=== PATIENT | male | born 1950 | race Caucasian/White ===

== ENCOUNTER 2019-05-08 09:07 | Inpatient (IN) ==
[2019-05-08] MEDS ORDERED: LEVAQUIN 750 MG/D5W 750 MG/150 ML IVPB IV ONE (09:33)
[2019-05-08] MEDS ORDERED: DUONEB (A & A) INH ONE (09:33)
[2019-05-08] MEDS ORDERED: LEVAQUIN 750 MG/D5W 750 MG/150 ML IVPB ONE (09:42)
[2019-05-08 09:52] LABS: ALLEN TEST YES; BE 2.6 mmoll (-3.0-3.0); BLOOD TYPE ARTERIAL; HCO3-(ACT) 26.9 mmoll (20.0-26.0); METHB 1.2 % (0.0-1.5); O2(CT) 27.1 mL/dL (15.0-23.0); O2HB 96.5 % (95.0-99.0); PCO2(98.6) 37 mmHg (35-45); PO2(98.6) 118 mmHg (60-100); SAMPLE BLOOD; SAO2 99.6 % (95.0-100.0); THB 19.9 g/dL (11.5-17.4); pH(98.6) 7.46 (7.35-7.45)
[2019-05-08 09:53] LABS: MODALITY NRB
--- NOTE | 2019-05-08 10:03 | Diag Imaging Result Doc PS360 ---
EXAM: CHEST-PORTABLE INDICATION: DRY COUGH TECHNIQUE: One view COMPARISON: 05/09/2015 FINDINGS: There is ill-defined patchy infiltrate at the medial left lung base projecting over the heart border suggesting pneumonia. Atypical viral pneumonia cannot be excluded. There is no discrete pleural fluid collection or pneumothorax. The cardiomediastinal silhouette and central vasculature are grossly unremarkable. IMPRESSION: Ill-defined patchy infiltrate at the medial left lung base suspicious for developing pneumonia. Electronically signed by Devang Barreto 05/08/2019 10:01 AM
--- NOTE | 2019-05-08 10:18 | PROVIDER DOCUMENTATION ---
HPI-Respiratory General - General Chief Complaint: Fever Stated Complaint: cough Time Seen by Provider: 05/08/19 09:07 Source: family, EMS Allergies/Adverse Reactions: Patient Allergies Allergy/AdvReac Type Severity Reaction Status Date / Time No Known Allergies Allergy Verified 05/08/19 10:30 Home Medications: Home Medication List Medication Instructions Recorded Confirmed Last Taken Type NK [No Home Medications] 05/08/19 05/08/19 Unknown History - History of Present Illness-Resp Nature of Presenting Problem: [id number] presents to the ER with c/o sudden onset of SOB, fever, and dry cough. Patient is non-verbal with MR and down syndrome. Brother reports that he lives with him in the home, but has caregivers that come in and out of the home twice per day. On arrival to the home EMS reports that patient's O2 sats were 80% on RA. Patient on arrival was on a non-rebreather at 86%. Dr Fitch and I spoke to the Brother. It was determined at that point that the patient was not to be intubated and would be considered a DNR1, if the time came. Patient is in moderated respiratory distress at this point. Onset/Duration: reports: abrupt, this morning Timing: reports: getting worse Cough Quality/Degree: reports: dry cough Associated Symptoms: reports: cough (dry), fever/chills, short of breath Similar Symptoms Previously?: No Recently seen or treated by another doctor?: No Review of Systems - Adult - REVIEW OF SYSTEMS - ADULT ROS:: limited per condition Constitutional: reports: see HPI, fever Eyes: reports: no symptoms reported Ears, Nose, Mouth & Throat: reports: no symptoms reported Cardiovascular: reports: no symptoms reported Respiratory: reports: see HPI, cough, shortness of breath Gastrointestinal: reports: no symptoms reported Genitourinary: reports: no symptoms reported Musculoskeletal: reports: no symptoms reported Integumentary: reports: no symptoms reported Neurological: reports: no symptoms reported Psychiatric: reports: no symptoms reported Endocrine: reports: no symptoms reported Hematologic/Lymphatic: reports: no symptoms reported Allergic/Immunologic: reports: no symptoms reported All Other Systems: Reviewed and Negative Past History - Adult - PAST MEDICAL HISTORY-ADULT Review of Records: reports: Old Records Reviewed, Nursing Assessment Review, Medications Reviewed, Social history reviewed & non-contributory. Major Childhood Illnesses: reports: denies history Cardiovascular: reports: denies history Respiratory: reports: denies history Gastrointestinal: reports: denies history Obstetrical/Gynecological: reports: denies history Genitourinary: reports: denies history Musculoskeletal: reports: denies history Neurological: reports: dementia, other (down syndrome) Endocrine/Immune: reports: denies history Other Conditions: reports: denies history - IMMUNIZATION STATUS Childhood Immunizations: See Nurse Assessment Flu Vaccine: See Nurse Assessment - FAMILY HISTORY Family History: reviewed, not pertinent - SOCIAL HISTORY Living Situation: family Physical Exam-General - PHYSICAL EXAM-ADULT Initial Vital Signs Reviewed: Yes - CONSTITUTIONAL General Appearance: moderate distress, thin - EYES Eyes: PERRL/EOMI, pink conjunctivae - HEAD, EARS, NOSE, MOUTH & THROAT HENMT: negative: moist mucous membranes (dry) - NECK Neck: full range of motion. negative: lymphadenopathy - RESPIRATORY Respiratory: decreased breath sounds (left), rhonchi (bilateral) - CARDIOVASCULAR Cardiovascular: regular rate, rhythm, no edema - GASTROINTESTINAL (ABDOMEN) Abdominal Exam: soft - MUSCULOSKELETAL Extremity: negative: normal gait (bed bound) Peripheral Pulses: radial (R): 2+, radial (L): 2+ - SKIN Integumentary: negative: normal color (pale), normal turgor (dry) - NEUROLOGIC Neurologic: other (non-verbal) - PSYCHIATRIC Psych/Mental Status: negative: oriented x 3 (will turn head to name only) Progress - PLAN OF CARE/RESULTS Progress/Plan/Lab Results: Orders Category Date Time Status Admit - [facility] Routine AdmDCTranf 05/08/19 16:11 Active Code [Resuscitation Status] Routine Care 05/08/19 10:28 Completed Isolation [Isolation Precautions Setup] NOW Care 05/08/19 09:26 Active Nursing- MD Consult Request ROUTINE Care 05/08/19 12:55 Active Resuscitation Status Routine Care 05/08/19 12:46 Ordered Saline Loc NOW Care 05/08/19 09:33 Completed Vital Signs Order ROUTINE Care 05/08/19 16:11 Active MD [Physician/Provider Consults] Routine Cons 05/08/19 12:55 Ordered NPO Diet 05/08/19 16:11 Completed CHEST-PORTABLE [RAD] Stat Exams 05/08/19 09:25 Completed ABG [RESP] Routine Lab 05/08/19 09:40 Completed BLOOD CULTURE [BLDCUL] Stat Lab 05/08/19 09:43 Results CBC WITH DIFF [HEME] Stat Lab 05/08/19 09:43 Completed COMPREHENSIVE METABOLIC PANEL [CHEM] Stat Lab 05/08/19 09:43 Completed GRAM STAIN [BLDCUL] Stat Lab 05/08/19 09:43 Completed LACTATE, PLASMA [CHEM] Lab 05/08/19 18:20 Completed LACTATE, PLASMA [CHEM] Lab 05/08/19 21:25 Completed LACTATE, PLASMA [CHEM] Stat Lab 05/08/19 09:43 Completed PRO B-NATRIURETIC PEPTIDE Stat Lab 05/08/19 09:43 Completed 0.9% Sodium Chloride Inj [Ns] 1,000 ml Med 05/08/19 10:56 Discontinued IV 999 mls/hr Albuterol 2.5MG/Ipratrop 0.5MG [Duoneb (A & A)] Med 05/08/19 09:33 Discontinued 3 ml INH NOW ONE Levofloxacin 750 mg/D5w [Levaquin 750 mg/D5w] Med 05/08/19 09:42 Discontinued 750 mg in 150 ml .ROUTE As directed Levofloxacin 750 mg/D5w [Levaquin 750 mg/D5w] Med 05/08/19 09:33 Discontinued 750 mg in 150 ml IV NOW Oxygen Device Routine Oth 05/08/19 16:11 Completed Pulse Oximetry Stat Oth 05/08/19 09:33 Completed Transfer/Admit Order [TRANSFER] Routine Transfer 05/08/19 12:45 Completed Result Diagrams: 05/11/19 08:02 05/12/19 05:57 - EKG 1 Time of EKG reading by physician:: 10:16 EKG Read and Signed by:: Guy Fitch EKG Interpretation (*Must complete 3 of following elements*): Normal Rate: 111 Rhythm: [facility] [place]: normal QRS: normal ND Interval: normal ST Wave: normal - XRAY 1 XRAY Study: Chest Impression: Abnormal, See EMR Report (FINDINGS: There is ill-defined patchy infiltrate at the medial left lung base projecting over the heart border suggesting pneumonia. Atypical viral pneumonia cannot be excluded. There is no d iscrete pleural fluid collection or pneumothorax. The cardiomediastinal silhouette and central vasculature are grossly unremarkable. IMPRESSION: Ill- defined patchy infiltrate at the medial left lung base suspicious for developing pneumonia.) Departure - Departure Date of Disposition Decision: 05/08/19 Time of Disposition Decision: 16:11 DIAGNOSIS: Pneumonia, Respiratory distress Disposition: ADMITTED INPATIENT 09 Certified Medical Emergency: Emergent Condition: Critical - Critical Care Note This patient required my direct & personal management of CC.: No Attestation - Physician/ HAFSA Attestation Patient care was provided by Advanced Practice Provider:: Yes Advanced Practice Provider:: Alejo Rudd Advanced Practice Provider documentation review:: The Mid-level provider documentation, treatment plan and medical decision making was reviewed by the physician who agrees with all treatment and medical decision making by the MLP. The physician spent face to face time with patient:: No Advanced Practice Provider documentation review:: Supervising physician onsite and consulted in the evaluation and care of this patient. The physician did not have a face to face encounter with the patient.
[2019-05-08 10:34] LABS: BASO# 0.08 X1000 (0.0-0.2); BASO% 0.7 % (0.0-0.8); HEMATOCRIT 48.9 % (42.0-52.0); IMM GRAN# 0.04 X1000 (0.0-0.04); IMM GRAN% 0.4 % (0.0-0.5); LYMPH# 1.89 X1000 (1.2-3.4); LYMPH% 16.9 % (20.5-51.1); MCHC 30.7 g/dL (33-37); MONO# 0.67 X1000 (0.11-0.59); MPV 9.8 FL (7.4-10.4); PLT 316 X1000 (130-400); RBC 4.84 XMIL (4.7-6.1); RDW 17.1 % (11.5-14.5); WBC 11.18 X1000 (4.8-10.8)
[2019-05-08 10:47] LABS: AGAP 10; ALB/GLOB RATIO 0.6; ALKALINE PHOSPHATASE 58 U/L (32-122); BUN 14 mg/dL (8-22); CALCIUM 8.7 mg/dL (8.8-10.2); CHLORIDE 108 mmol/L (98-107); COSMO 295; CREATININE 1.1 mg/dL (0.7-1.2); ESTIMATED GFR > 60; GLUCOSE 98 mg/dL (70-104); GOT 20 U/L (10-34); GPT 14 U/L (10-44); POTASSIUM 4.1 mmol/L (3.5-5.1); SODIUM 148 mmol/L (136-145); TCO2 30 mmol/L (25-35); TOTAL BILIRUBIN 0.82 mg/dL (0.20-1.00); TOTAL PROTEIN 8.2 g/dL (6.3-8.3)
[2019-05-08] MEDS ORDERED: NS 1,000 ML IV ONE (10:56)
[2019-05-08] MEDS ORDERED: TYLENOL PR PRN (17:04)
[2019-05-08] MEDS: NS 1,000 ML IV SCH (17:29)
--- NOTE | 2019-05-08 18:47 | HISTORY AND PHYSICAL ---
Admitted by Dr. Delta Bennett to Dr. Crespo. CHIEF COMPLAINT: Fever, shortness of breath with dry cough. PRESENT ILLNESS: The patient had sudden onset of shortness of breath, fever, dry cough. He is nonverbal with MR and Down syndrome. He lives with his brother at home but has caregivers and also coming in and out of the home. On arrival to his home, EMS checked his O2 saturation and they were at 80 on room air. He was placed on a nonrebreather which brought it up to 86%. He was then brought to the emergency room. Emergency room doctor, Dr. Fitch, spoke with the brother and brother said he did not want him to be intubated and to consider him a DNR 1 and he has been made so. White count was 11,180, hemoglobin 15, hematocrit 48.9. Blood gas showed a pH of 7.46, pCO2 37, PO2 118 on 100% FiO2. Sodium 148, potassium 4.1, chloride 108, BUN 14, creatinine 1.1. ProBNP was 1541. The patient at this point does not show any signs of congestive heart failure. I do not have any past history noted that he has had heart failure. Because he has had a dry cough and a fever he has been tested for COVID-19, results are not back yet. Chest x-ray showed slight left lower lobe infiltrate, possible early pneumonia or viral pneumonitis. Could not get much in the way of past history on this patient at this time. After I talk with the brother there may be more information. Could not get anything on social history other than he lives with his brother. REVIEW OF SYSTEMS: Unobtainable at this time. PHYSICAL EXAMINATION: Initial temperature was 100 degrees Fahrenheit, went down to 99.6 and is back up to 100.5. Blood pressure has been down around 95, has been as high as 119, pulse 107, respirations 21. HEENT: He is normocephalic except for Down syndrome facies. NECK: Supple. I feel no lymphadenopathy. LUNGS: Sound fairly clear to auscultation. HEART: Regular rate and rhythm to sinus tachycardia without murmurs, gallops, or friction rubs. ABDOMEN: Soft, active bowel sounds. No organomegaly or does not seem to be tender. Patient does not respond. RECTAL: Deferred. GENITOURINARY: External genitalia exam deferred. INTEGUMENT: Does show decubitus ulcer to the sacrum. We will get wound care to look at this. NEUROLOGICAL: Patient is not very responsive at this time. ASSESSMENT AND PROVISIONAL DIAGNOSIS: 1. Probable left lower lobe pneumonia. Could be viral or bacterial. 2. Hypotension, rule out sepsis. 3. Intellectual deficit with Down syndrome. PLAN: Will support with IV antibiotics and IV fluids. The patient is a DNR 1. Have consulted pulmonology. cc: Delta Bennett Jr, MD
[2019-05-08] MEDS ORDERED: CALMOSEPTINE OINTMENT TOP PRN (18:58)
--- NOTE | 2019-05-08 19:58 | PULMONOLOGY CONSULTATION ---
DATE OF CONSULTATION: 05/08/2019 REQUESTING PHYSICIAN: Dr. Delta Bennett. REASON FOR CONSULT: Pneumonia, shortness of breath. HISTORY OF PRESENT ILLNESS: This is a 68-year-old gentleman with a history of mental retardation and Down syndrome. He is nonverbal. He presented to the emergency room via EMS after being called by the patient's brother, with whom he lives, reporting a nonproductive cough, a temperature of 100.4 degrees and O2 saturation of 80% on room air on EMS arrival. The chart states that he was placed on a nonrebreather and saturations increased to 95%. At the time of my exam the patient is alone. The patient is nonverbal. According to the chart, nurses spoke to the brother who states that the patient lived with his mother up until 2006, when she . At that time he came to live with him. He states that workers from [employer] come to his house twice a day. In the morning they get the patient dressed and sit him up in a chair. In the afternoon they come back to get him, change him and put him back to bed. He does state that he has a pressure sore to his bottom that he would like us to check. The patient does have to be fed. PAST MEDICAL HISTORY: Mental retardation, Down syndrome. PAST SURGICAL HISTORY: Unknown. SOCIAL HISTORY: He lives with his brother. No alcohol, tobacco or illicit drug use. ALLERGIES: None documented. HOME MEDICATIONS: None documented. REVIEW OF SYSTEMS: Unable to obtain. PHYSICAL EXAMINATION: This is a 68-year-old gentleman who is lying on the bed in no distress. Vital signs: Blood pressure is 99/68 with a heart rate of 100, respirations are 22, temperature is 100.5 degrees oral, with O2 saturations 97% to 100% on nonrebreather mask.Eyes: Pupils are equal, round and react to light. Sclerae are anicteric. HEENT: Head is normocephalic, atraumatic. Mucous membranes are dry. Neck is supple, with trachea midline. Pulmonary: He has decreased breath sounds throughout with rhonchi that are noted scattered through both lungs. Chest rises and falls symmetric with respiration. Cardiovascular: Regular rate and rhythm. S1 and S2 are appreciated. No murmur. He has no lower extremity edema. Peripheral pulses are palpable x4 extremities. Gastrointestinal: Abdomen is soft, nondistended, with bowel sounds in all 4 quadrants. Skin is pale, warm and dry. Extremities: Contractures are noted, bilateral lower extremities. Neurologic: The patient moves extremities at random. He does withdraw to pain. He will turn his head to his name being called, although he does not follow commands. LABORATORY DATA: WBC is 11.1 with hemoglobin 15, hematocrit 48.9 and platelets 316,000. Sodium 148, potassium 4.1, BUN 14, creatinine 1.1 with a glucose of 98. ProBNP is 1541. ABG pH is 7.46 with pCO2 of 37, pO2 of 118, bicarbonate of 26.9. This was on a nonrebreather. DIAGNOSTIC DATA: Chest x-ray revealed left lower lobe pneumonia. ASSESSMENT AND PLAN: 1. Left lower lobe pneumonia. Continue current antibiotic regimen 2. Borderline hypotension. Pressures are running 93 to 119 systolic. Membranes are dry. He was given 1 L bolus in the emergency room. continue rehydrating per Dr. Bennett. 3. Intellectual deficit with Down syndrome. 4. Down syndrome. 5. Mental retardation. 6. Gastrointestinal prophylaxis. Add Protonix. 7. Labs and chest x-ray in the morning per Dr. Bennett. Thank you for allowing us to participate in this patient's care. Dictated by MARLINE Givens for Asher Rios MD cc: MARLINE Givens MD Roger H. Moss Jr, MD MTDD
--- NOTE | 2019-05-08 20:32 | EKG Report ---
Test Performed on : 05/08/2019 10:16:11 AM Test Reason : sob Blood Pressure : / mmHG Vent. Rate : 111 BPM Atrial Rate : 111 BPM P-R Int : 116 ms QRS Dur : 084 ms QT Int : 350 ms P-R-T Axes : 076 -19 038 degrees QTc Int : 476 ms Sinus tachycardia. Otherwise normal ECG No previous ECGs available Confirmed by Rommel De La Cruz MD ([id number]) on 05/09/2019 6:00:08 PM
[2019-05-08] MEDS: SODIUM CHLORIDE 0.9% INJ SCH (21:13)
[2019-05-08] MEDS: PROTONIX IV SCH (21:13)
[2019-05-08] MEDS: TAZIDIME 2 GM/NS 2 GM/100 ML IVPB IV SCH (21:29)
[2019-05-08 21:50] LABS: INR 1.61; PROTIME 19.5 Seconds (11.0-16.0)
[2019-05-08 21:51] LABS: PTT 37.9 Seconds (22.3-41.8)
[2019-05-08 23:17] LABS: CK INDEX 0.7 (0.0-2.5); CK-MB 1.97 ng/mL (0.0-5.0)
[2019-05-09] MEDS: NS 1,000 ML IV SCH ×3 (00:25→13:03)
[2019-05-09 01:09] LABS: URINE SOURCE CATH
[2019-05-09 01:18] LABS: BILIRUBIN URINE NEGATIVE (NEGATIVE); BLOOD URINE NEGATIVE (NEGATIVE); COLOR YELLOW; GLUCOSE URINE NEGATIVE (NEGATIVE); KETONE URINE 10 mg/dL (NEGATIVE); LEUKOCYTES URINE SMALL (NEGATIVE); NITRITE URINE POSITIVE (NEGATIVE); PH URINE 6.5; PROTEIN URINE 30 mg/dL (NEGATIVE); TURBIDITY URINE CLEAR (CLEAR); UROBILINOGEN URINE NORMAL (NORMAL)
[2019-05-09 01:19] LABS: UR EPITHELIAL CELLS <10 /HPF (<10); URINE BACTERIA NEGATIVE /HPF; URINE RBC <10 /HPF (<10); URINE WBC 20-40 /HPF (<10)
[2019-05-09] MEDS: TAZIDIME 2 GM/NS 2 GM/100 ML IVPB IV SCH ×3 (05:09→21:19)
[2019-05-09 05:56] LABS: BASO# 0.08 X1000 (0.0-0.2); BASO% 0.8 % (0.0-0.8); EOS# 0.03 X1000 (0.0-0.7); EOS% 0.3 % (0.0-10.0); HEMATOCRIT 40.5 % (42.0-52.0); HEMOGLOBIN 12.6 g/dL (14.0-18.0); IMM GRAN# 0.04 X1000 (0.0-0.04); IMM GRAN% 0.4 % (0.0-0.5); LYMPH# 1.59 X1000 (1.2-3.4); LYMPH% 15.3 % (20.5-51.1); MCH 32.6 PG (27-31); MCHC 31.1 g/dL (33-37); MCV 104.7 FL (81-99); MONO# 0.39 X1000 (0.11-0.59); MONO% 3.7 % (1.7-9.3); NEUT# 8.28 X1000 (1.4-6.5); NEUT% 79.5 % (42.2-75.2); PLT 167 X1000 (130-400); RBC 3.87 XMIL (4.7-6.1); RDW 16.7 % (11.5-14.5); WBC 10.41 X1000 (4.8-10.8)
[2019-05-09 06:05] LABS: AGAP 11; BUN 12 mg/dL (8-22); CHLORIDE 116 mmol/L (98-107); COSMO 301; CREATININE 0.8 mg/dL (0.7-1.2); ESTIMATED GFR > 60; GLUCOSE 86 mg/dL (70-104); POTASSIUM 3.7 mmol/L (3.5-5.1); PREALBUMIN 7.6 mg/dL (20-40); SODIUM 152 mmol/L (136-145); TCO2 25 mmol/L (25-35)
--- NOTE | 2019-05-09 08:11 | Diag Imaging Result Doc PS360 ---
EXAM: CHEST-PORTABLE INDICATION: pneumonia TECHNIQUE: One view COMPARISON: 05/08/2019 FINDINGS: The vague ill-defined infiltrates at the medial left lung base are approximately stable. No new consolidation is identified. Cardiac silhouette is stable. IMPRESSION: Stable chest. Electronically signed by Devang Barreto 05/09/2019 8:09 AM
[2019-05-09] MEDS: SODIUM CHLORIDE 0.9% INJ SCH ×2 (09:57→21:20)
[2019-05-09] MEDS: PROTONIX IV SCH ×2 (09:57→21:19)
[2019-05-09] MEDS: LEVAQUIN 750 MG/D5W 750 MG/150 ML IVPB IV SCH (09:58)
--- NOTE | 2019-05-09 10:15 | PROGRESS NOTE ---
DATE: 05/09/2019 SUBJECTIVE: The patient is still not speaking but he has not for some time, according to his brother. He is, however, alert with his eyes open and seems to be doing much better. OBJECTIVE: Blood pressure is 107/57, respirations 14, pulse 85, temperature 98.4 degrees Fahrenheit, oxygen saturation on room air was 93%. HEENT: Normocephalic. EOMs intact. PERRLA. Throat clear. Lungs: Sound clear to auscultation and percussion without rhonchi, rales, or wheezes, though the chest x-ray still shows left lower lobe infiltrate. Heart: Regular rate and rhythm without murmurs, gallops, or friction rubs. Abdomen: Soft. Active bowel sounds. No organomegaly or tenderness. White count is 10,410, hemoglobin 12.6 down from 15, hematocrit 40.5 down from 48.9. Potassium 3.7, sodium a little high at 152, BUN down to 12, creatinine 0.8, GFR greater than 60. Catheterized urine did show 20 to 40 WBCs, so he may have a UTI and was nitrite positive as well. ASSESSMENT: 1. Left lower lobe pneumonia. 2. Urinary tract infection. PLAN: Continue IV antibiotics and IV fluids. I think he probably was dehydrated. We will start some clear liquids. We will watch and see how he handles that and then advance diet accordingly. He is on Levaquin and Fortaz. cc: MD Jerrell Ochoa Jr, MD
--- NOTE | 2019-05-09 18:27 | PULMONOLOGY PROGRESS NOTE ---
DATE: 05/09/2019 SUBJECTIVE: Mr. Oden is lying in the bed, appears to be resting comfortable. He is more alert today. He is looking around the room and looking toward me when I speak with him. OBJECTIVE: Vital Signs: Blood pressure is 136/78, with a heart rate of 83, respirations 16, temperature is 97.8 degrees, O2 saturation is 94 to 96 percent. Cardiovascular: Regular rate and rhythm. S1 and S2 are appreciated. Pulmonary: Breath sounds are clear. They are diminished in the left lower lobe. Chest rises and falls symmetrically with respirations. No increased work of breathing noted. Gastrointestinal: Abdomen is soft, nondistended, with bowel sounds in all 4 quadrants. Labs: WBC is 10.4 with hemoglobin 12.6, hematocrit 40.5, and platelets 167,000. Sodium 152, potassium 3.7, chloride 116, BUN 12, creatinine 0.8, with a glucose of 86. Urine culture is pending. Blood cultures are pending. Wound culture of left buttock is pending. Chest x-ray revealed left lower lobe infiltrates. IMPRESSION: This is a 68-year-old gentleman with 1. left lower lobe pneumonia. 2. Borderline hypotension. This has resolved. 3. Intellectual development with Down syndrome. 4. Mental retardation. 5. Gastrointestinal prophylaxis. 6. Wound PLAN: 1. continue with ceftazidime and Levaquin. 2. Continue with IV hydration. 3. Continue Protonix. 4. Wound care consult has been ordered. Dictated by MARLINE Givens for Asher Rios MD cc: MARLINE Givens MD Adnan A. Seljuki, MD [facility]
[2019-05-10] MEDS: TAZIDIME 2 GM/NS 2 GM/100 ML IVPB IV SCH ×3 (03:20→21:32)
[2019-05-10] MEDS: NS 1,000 ML IV SCH ×4 (03:20→21:33)
[2019-05-10 07:30] LABS: BASO# 0.08 X1000 (0.0-0.2); EOS% 1.2 % (0.0-10.0); HEMATOCRIT 40.2 % (42.0-52.0); HEMOGLOBIN 12.3 g/dL (14.0-18.0); IMM GRAN# 0.03 X1000 (0.0-0.04); IMM GRAN% 0.4 % (0.0-0.5); LYMPH# 1.28 X1000 (1.2-3.4); LYMPH% 15.4 % (20.5-51.1); MCH 31.6 PG (27-31); MCHC 30.6 g/dL (33-37); MCV 103.3 FL (81-99); MONO# 0.38 X1000 (0.11-0.59); MONO% 4.6 % (1.7-9.3); MPV 9.6 FL (7.4-10.4); NEUT# 6.42 X1000 (1.4-6.5); NEUT% 77.4 % (42.2-75.2); PLT 209 X1000 (130-400); RBC 3.89 XMIL (4.7-6.1); RDW 16.1 % (11.5-14.5); WBC 8.29 X1000 (4.8-10.8)
[2019-05-10 07:43] LABS: AGAP 9; BUN 9 mg/dL (8-22); CALCIUM 7.7 mg/dL (8.8-10.2); CHLORIDE 115 mmol/L (98-107); COSMO 294; CREATININE 0.7 mg/dL (0.7-1.2); ESTIMATED GFR > 60; GLUCOSE 76 mg/dL (70-104); POTASSIUM 3.4 mmol/L (3.5-5.1); SODIUM 149 mmol/L (136-145); TCO2 25 mmol/L (25-35)
[2019-05-10] MEDS ORDERED: KLOR-CON POWDER PACKET PO ONE (10:17)
[2019-05-10] MEDS: LEVAQUIN 750 MG/D5W 750 MG/150 ML IVPB IV SCH (10:24)
[2019-05-10] MEDS: PROTONIX IV SCH ×2 (10:24→21:33)
[2019-05-10] MEDS: SODIUM CHLORIDE 0.9% INJ SCH ×2 (10:25→21:33)
--- NOTE | 2019-05-10 10:48 | PROGRESS NOTE ---
DATE: 05/10/2019 SUBJECTIVE: Patient denies having any acute complaints this morning. OBJECTIVE: Vital Signs: Temperature 97.5 degrees, pulse 68 per minute, respiratory rate 20 per minute, blood pressure 194/66, pulse ox 98 percent. Cardiovascular System: First and second heart sounds are audible without any murmurs or gallops. Respiratory System: No respiratory distress noted. Bilateral lung air entry is moderately decreased, but there are no rales or rhonchi present on auscultation. Gastrointestinal System: Abdomen is benign. DIAGNOSTIC DATA: CBC shows WBC count of 8.29, hemoglobin 12.3, hematocrit 40.2, and platelet count of 209. Basic metabolic panel showed sodium level of 149, potassium of 3.4 and chloride of 115. Rest of the basic metabolic panel is nondiagnostic. IMPRESSION: 1. Left lower lobe pneumonia. 2. Hypokalemia. 3. Down syndrome. PLAN: Patient will be continued on IV ceftazidime along with levofloxacin. I am also going to give him 20 mEq of potassium chloride today, and have repeat labs in the morning tomorrow. He will be continued on IV fluids, although I am going to reduce the rate to normal saline at 100 mL/hour. We will continue with the rest of supportive care including physical therapy. We will follow clinical course. cc: Jerrell Crespo MD
--- NOTE | 2019-05-10 22:16 | PULMONOLOGY PROGRESS NOTE ---
DATE: 05/10/2019 SUBJECTIVE: The patient is awake. He did not answer questions when I asked him. OBJECTIVE: Vital Signs: The patient has been afebrile for the last 24 hours. Blood pressure is 116/69, heart rate 68, respiratory rate 20, oxygen saturation 96%. HEENT: Pupils are equal and reactive. Oropharynx appears clear. Neck: Supple. Chest: Reveals crackles at the left lung base without egophony. Cardiac Exam: S1 and S2. Abdomen: Soft. Extremities: Without edema. LABORATORY DATA: Microbiology reveals a gram-negative masoud from wound culture. White blood count 8.29, hemoglobin 12.3, platelet count 209,000. IMPRESSION: 1. Left lower lobe pneumonia. 2. Hypernatremia. 3. Down syndrome with mental retardation. 4. Wound infection. PLAN: 1. Continue current antibiotic regimen. 2. Continue resuscitation. He may need additional free water. 3. Follow up chest x-ray tomorrow. cc: MD Jerrell Izaguirre MD
[2019-05-11] MEDS: TAZIDIME 2 GM/NS 2 GM/100 ML IVPB IV SCH ×3 (04:49→22:21)
--- NOTE | 2019-05-11 07:35 | Diag Imaging Result Doc PS360 ---
EXAM: CHEST-PORTABLE INDICATION: abnormal exam TECHNIQUE: One view COMPARISON: 05/09/2019 FINDINGS: Ill-defined infiltrate at the medial left lung base is grossly unchanged. No new consolidation is identified. Cardiac silhouette is stable. IMPRESSION: Stable chest. Electronically signed by Devang Barreto 05/11/2019 7:32 AM
[2019-05-11 08:14] LABS: BASO# 0.05 X1000 (0.0-0.2); BASO% 0.6 % (0.0-0.8); EOS# 0.18 X1000 (0.0-0.7); EOS% 2.2 % (0.0-10.0); HEMATOCRIT 38.8 % (42.0-52.0); IMM GRAN# 0.03 X1000 (0.0-0.04); IMM GRAN% 0.4 % (0.0-0.5); LYMPH# 1.46 X1000 (1.2-3.4); LYMPH% 17.9 % (20.5-51.1); MCH 30.8 PG (27-31); MCHC 30.9 g/dL (33-37); MCV 99.7 FL (81-99); MONO# 0.58 X1000 (0.11-0.59); MONO% 7.1 % (1.7-9.3); MPV 9.8 FL (7.4-10.4); NEUT# 5.84 X1000 (1.4-6.5); NEUT% 71.8 % (42.2-75.2); PLT 194 X1000 (130-400); RBC 3.89 XMIL (4.7-6.1); RDW 15.6 % (11.5-14.5); WBC 8.14 X1000 (4.8-10.8)
--- NOTE | 2019-05-11 08:16 | PROGRESS NOTE ---
DATE: 05/11/2019 SUBJECTIVE: The patient denies having any acute complaints this morning. OBJECTIVE: Vital Signs: Temperature 97.5 degrees, pulse 89 per minute, respiratory rate 20 per minute, blood pressure 102/55, pulse oximetry 96% on room air. General: Patient is alert and awake. He does not appear to be in any acute distress. Cardiovascular System: First and second heart sounds are audible without any murmurs or gallops. Respiratory System: Bilateral lung air entry is slightly decreased but there are no rales or rhonchi present on auscultation. Gastrointestinal: Abdomen is soft and nondistended. Normal bowel sounds are present. DIAGNOSTIC DATA: CBC and BMP done this morning are pending at the time of this dictation. Chest x-ray done this morning showed ill-defined infiltrate at the left lung base that is grossly unchanged when compared to previous chest x-rays. IMPRESSION: 1. Left lower lobe pneumonia. 2. Left buttocks wound infection secondary to Proteus mirabilis. 3. Hypokalemia. 4. Down syndrome. PLAN: The patient will be continued on broad-spectrum antibiotics along with supportive care. He does have hyponatremia and is currently getting normal saline IV. I am going to change it to half- normal saline if he continues to have hyponatremia on repeat labs today. Overall, the patient's condition has been stable and seems to be getting better. cc: Jerrell Crespo MD
[2019-05-11 08:33] LABS: AGAP 11; BUN 6 mg/dL (8-22); CALCIUM 7.3 mg/dL (8.8-10.2); CHLORIDE 111 mmol/L (98-107); COSMO 285; CREATININE 0.6 mg/dL (0.7-1.2); ESTIMATED GFR > 60; GLUCOSE 70 mg/dL (70-104); POTASSIUM 3.3 mmol/L (3.5-5.1); SODIUM 145 mmol/L (136-145); TCO2 23 mmol/L (25-35)
[2019-05-11] MEDS: LEVAQUIN 750 MG/D5W 750 MG/150 ML IVPB IV SCH (11:18)
[2019-05-11] MEDS: NS 1,000 ML IV SCH ×2 (11:18→22:21)
[2019-05-11] MEDS: KLOR-CON POWDER PACKET PO SCH (11:20)
[2019-05-11] MEDS: SODIUM CHLORIDE 0.9% INJ SCH (11:21)
[2019-05-11] MEDS: PROTONIX IV SCH ×2 (11:21→22:21)
--- NOTE | 2019-05-11 19:27 | PULMONOLOGY PROGRESS NOTE ---
DATE: 05/11/2019 SUBJECTIVE: The patient is awake and alert. He is nonconversant. He appears comfortable and without increased work of breathing. OBJECTIVE: Vital Signs: The patient is afebrile. Blood pressure 110/78, heart rate 70, respiratory rate 16, oxygen saturation 97% on room air. HEENT: Pupils are equal and reactive. Oropharynx appears clear. Neck: Is supple. Chest: Reveals crackles at the left lung base. Cardiac: Exam S1-S2. Abdomen: Is soft. Extremities: Without edema. LABORATORIES: Chest x-ray reveals persistent infiltrate at the left lung base which is unchanged. White blood count 8.14, hemoglobin 12.0, platelet 194,000. Sodium 145, potassium 3.3, chloride 111, bicarb 23, BUN 6, creatinine 0.6. IMPRESSION: A 68-year-old with: 1. Left lower lobe pneumonia. 2. Mild hypernatremia. 3. Wound infection. 4. Mental retardation. PLAN: 1. Continue current antibiotic regimen. 2. Allow natural if he deteriorates during this hospital stay. cc: MD Jerrell Izaguirre MD
[2019-05-12] MEDS: NS 1,000 ML IV SCH ×2 (05:01→21:06)
[2019-05-12] MEDS: TAZIDIME 2 GM/NS 2 GM/100 ML IVPB IV SCH ×3 (05:01→21:01)
[2019-05-12 07:14] LABS: AGAP 9; BUN 4 mg/dL (8-22); CALCIUM 7.2 mg/dL (8.8-10.2); CHLORIDE 108 mmol/L (98-107); COSMO 280; CREATININE 0.6 mg/dL (0.7-1.2); ESTIMATED GFR > 60; GLUCOSE 100 mg/dL (70-104); POTASSIUM 3.5 mmol/L (3.5-5.1); SODIUM 142 mmol/L (136-145); TCO2 25 mmol/L (25-35)
--- NOTE | 2019-05-12 09:40 | PROGRESS NOTE ---
DATE: 05/12/2019 SUBJECTIVE: The patient is awake and does not appear to be in any acute distress. He does not respond to any questions. He does have history of Down syndrome with mental retardation. OBJECTIVE: Vital Signs: Temperature 98.2 degrees, pulse 64 per minute, respiratory rate 18 per minute, blood pressure 100/60, pulse oximetry 100% on room air. General: The patient is awake and does not appear to be in any acute distress. Cardiovascular system: First and second heart sounds are audible without any murmurs or gallops. Respiratory System: Bilateral lung air entry is slightly decreased but there are no rales or rhonchi present on auscultation. Gastrointestinal system: Abdomen seems to be benign. DIAGNOSTIC DATA: CBC and basic metabolic panel are nondiagnostic. IMPRESSION: 1. Left lower lobe pneumonia. 2. Left buttocks Proteus mirabilis wound infection. 3. Down syndrome. PLAN: Patient will be continued on broad-spectrum antibiotics along with supportive care and wound care. His hypernatremia has improved. His hypokalemia has also resolved. We will continue to monitor his electrolytes. Overall, although clinically he is in stable condition, long-term prognosis remains poor. cc: Jerrell Crespo MD MTDD
[2019-05-12] MEDS: LEVAQUIN 750 MG/D5W 750 MG/150 ML IVPB IV SCH (11:02)
[2019-05-12] MEDS: PROTONIX IV SCH ×2 (11:03→21:01)
[2019-05-12] MEDS: KLOR-CON POWDER PACKET PO SCH (11:03)
[2019-05-12] MEDS: SODIUM CHLORIDE 0.9% INJ SCH ×2 (11:03→21:01)
--- NOTE | 2019-05-12 19:26 | PULMONOLOGY PROGRESS NOTE ---
DATE: 05/12/2019 SUBJECTIVE: The patient is awake and alert. He appears to be comfortable. He is not working to breathe. OBJECTIVE: He has not had a recent fever. Blood pressure 132/80, heart rate 74, respiratory rate 18, oxygen saturation 96% on room air. HEENT: Pupils are equal and reactive. Oropharynx appears clear. Neck: Is supple. Chest: Reveals crackles in the left lung base. Cardiac exam: S1, S2. Abdomen: Is soft. Extremities: Without edema. IMPRESSION: A 68-year-old with: 1. Left lower lobe pneumonia. 2. Gram-negative wound infection on the buttock. 3. Down syndrome. DISCUSSION: 68-year-old with problems outlined above. Patient continues to improve. PLAN: 1. Continue current antibiotics. 2. Consider discharge at the end of the week with a course of Augmentin. cc: MD Jerrell Izaguirre MD
[2019-05-13] MEDS: TAZIDIME 2 GM/NS 2 GM/100 ML IVPB IV SCH ×3 (04:57→22:35)
[2019-05-13 07:00] LABS: ESTIMATED GFR > 60
[2019-05-13 07:07] LABS: AGAP 11; BUN 3 mg/dL (8-22); CHLORIDE 104 mmol/L (98-107); COSMO 274; CREATININE 0.6 mg/dL (0.7-1.2); GLUCOSE 72 mg/dL (70-104); POTASSIUM 3.2 mmol/L (3.5-5.1); SODIUM 140 mmol/L (136-145); TCO2 25 mmol/L (25-35)
--- NOTE | 2019-05-13 07:33 | Diag Imaging Result Doc PS360 ---
CHEST-PORTABLE - 05/13/2019 INDICATION: Pneumonia COMPARISON: 05/11/2019 FINDINGS: There has been improvement in the left basilar infiltrate. Stable faint infiltrate or atelectasis at the right lung base. Heart size remains normal. No pneumothorax or pleural effusion. IMPRESSION: Improvement in the left basilar infiltrate. Electronically signed by Han Trent 05/13/2019 7:31 AM
[2019-05-13] MEDS ORDERED: CALCIUM GLUCONATE 2 GM in NS 100 ML IV ONE (07:47)
[2019-05-13] MEDS: NS 1,000 ML IV SCH ×4 (08:21→22:35)
[2019-05-13] MEDS: SODIUM CHLORIDE 0.9% INJ SCH (08:25)
[2019-05-13] MEDS: PROTONIX IV SCH (08:25)
[2019-05-13] MEDS: KLOR-CON POWDER PACKET PO SCH ×2 (08:27→22:35)
--- NOTE | 2019-05-13 08:28 | PROGRESS NOTE ---
DATE: 05/13/2019 SUBJECTIVE: The patient is awake and does not appear to be in any acute distress. He is a poor historian and is not able to communicate because of mental retardation and Down syndrome. OBJECTIVE: Vital Signs: Temperature 99.2 degrees, pulse 68 per minute, respiratory rate 16 per minute, blood pressure 138/76, pulse oximetry 99% on room air. General: Patient is awake. He does not appear to be in any acute distress. Cardiovascular System: First and second heart sounds are audible without any murmurs or gallops. Respiratory System: Bilateral lung air entry is moderately decreased, but there are no rales or rhonchi present on auscultation. Gastrointestinal System: Abdomen seems to be benign. DIAGNOSTIC DATA: Chemistry obtained this morning shows potassium levels of 3.2 and calcium of 7.0. Rest of the basic metabolic panel is nondiagnostic. Chest x-ray done this morning showed improvement in the left basilar infiltrate. IMPRESSION: 1. Left lower lobe pneumonia. 2. Left buttocks Proteus mirabilis wound infection. 3. Hypokalemia. 4. Hypocalcemia. 5. Down syndrome. PLAN: The patient will be continued on broad-spectrum antibiotics, along with supportive care. We will give him potassium chloride along with calcium gluconate. Overall, his condition is getting better, and most likely he will be discharged home by tomorrow as recommended by Pulmonology. cc: Jerrell Crespo MD
[2019-05-13] MEDS: LEVAQUIN 750 MG/D5W 750 MG/150 ML IVPB IV SCH (12:29)
--- NOTE | 2019-05-13 19:28 | PULMONOLOGY PROGRESS NOTE ---
DATE: 05/13/2019 SUBJECTIVE: The patient is resting comfortably. He does not appear to be in any distress. OBJECTIVE: Vital Signs: The patient has been afebrile for the last 24 hours. Blood pressure 118/78, heart rate 94, respiratory rate 16, oxygen saturation 97% on room air. HEENT: Pupils appear equal. Oropharynx appears clear. neck: Neck is supple. pulmonary: Chest has minimal crackles at the left base. Cardiac: S1-S2. abdomen: Abdomen is soft. Extremities: Without edema. LABORATORIES: Chest x-ray reveals decreasing left basilar infiltrate. IMPRESSION: A 68-year-old with: 1. Left lower lobe pneumonia. 2. Gram-negative wound infection on the buttock. 3. Down syndrome. PLAN: 1. Continue current antibiotics. 2. Anticipate discharge home soon as outlined by Dr. Crespo. cc: MD Jerrell Izaguirre MD
[2019-05-14] MEDS: TAZIDIME 2 GM/NS 2 GM/100 ML IVPB IV SCH ×2 (06:08→14:06)
[2019-05-14] MEDS: PROTONIX IV SCH ×2 (06:08→06:23)
[2019-05-14] MEDS: SODIUM CHLORIDE 0.9% INJ SCH (06:08)
[2019-05-14 07:08] LABS: AGAP 8; BUN 3 mg/dL (8-22); CALCIUM 7.8 mg/dL (8.8-10.2); CHLORIDE 104 mmol/L (98-107); COSMO 275; CREATININE 0.7 mg/dL (0.7-1.2); ESTIMATED GFR > 60; GLUCOSE 89 mg/dL (70-104); MAGNESIUM 1.9 mg/dL (1.5-2.7); POTASSIUM 3.9 mmol/L (3.5-5.1); SODIUM 140 mmol/L (136-145); TCO2 28 mmol/L (25-35)
[2019-05-14] MEDS: KLOR-CON POWDER PACKET PO SCH (08:15)
[2019-05-14] MEDS: LEVAQUIN 750 MG/D5W 750 MG/150 ML IVPB IV SCH (08:16)
[2019-05-14] MEDS: NS 1,000 ML IV SCH ×2 (12:42→18:44)
--- NOTE | 2019-05-14 18:41 | PROGRESS NOTE ---
DATE: 05/14/2019 SUBJECTIVE: No acute complaints reported. He does not appear to be in any acute distress. He is not able to communicate because of mental retardation and Down syndrome. OBJECTIVE: Vital Signs: Temperature 98.2 degrees, pulse 79 per minute, respiratory rate 16 per minute, blood pressure 126/93, pulse oximetry 98% on room air. General: Patient is awake and does not appear to be in any acute distress. Cardiovascular System: First and second heart sounds are audible without any murmurs or gallops. Respiratory System: Bilateral lung air entry is good without any rales or rhonchi. Gastrointestinal: Abdomen is soft and nondistended. Normal bowel sounds are present. Integumentary: Small stage II decubitus ulcer noted on the right buttock area that appears to be healing well. DIAGNOSTIC DATA: Basic metabolic panel done this morning was nondiagnostic. IMPRESSION: 1. Left lower lobe pneumonia. 2. Proteus mirabilis wound infection in the buttock area. 3. Hypokalemia that has improved. 4. Hypocalcemia that has improved. 5. Down syndrome. PLAN: The patient will continue on broad-spectrum antibiotics along with supportive care. We are planning to discharge him home tomorrow morning. I did have a discussion with his brother, Mr. Paul Oden, who is his next of kin and caregiver. We are going to arrange ambulance for the patient to be transported to his house tomorrow morning. We will also arrange home health for wound care. cc: Jerrell Crespo MD
[2019-05-15] MEDS: KLOR-CON POWDER PACKET PO SCH ×2 (00:17→10:25)
[2019-05-15] MEDS: NS 1,000 ML IV SCH ×2 (00:18→10:36)
[2019-05-15] MEDS: TAZIDIME 2 GM/NS 2 GM/100 ML IVPB IV SCH ×3 (00:18→16:07)
[2019-05-15] MEDS: PROTONIX IV SCH (07:54)
[2019-05-15] MEDS: LEVAQUIN 750 MG/D5W 750 MG/150 ML IVPB IV SCH (10:24)
--- NOTE | 2019-05-15 14:07 | PROGRESS NOTE ---
DATE: 05/15/2019 SUBJECTIVE: Lethargic, in bed and afebrile at this time. OBJECTIVE: Head and neck: Examined. Trachea midline. Vital signs: Noted. Pulse oximetry 90- 95 percent on room air. He is afebrile. Blood pressure 110/77. Chest exam: Reduced air entry bilaterally. Cardiac exam: Sinus rhythm. Exam nontender. Extremities: Examination showed + 1 pedal edema. Neurological exam: Lethargic. LABORATORY AND INVESTIGATIONS: Creatinine 0.7. CMP was noted. Last chest x-ray was from May 12. ASSESSMENT AND PLAN: This is a 68-year-old man, who is mentally challenged. 1. Pneumonia. We will continue antibiotics and continue oxygen. 2. Shortness of breath, improving. Plan to continue antibiotics and titrate oxygen to patient needs. Continue protocols and follow closely. cc: MD Jerrell Gonzalez MD
--- NOTE | 2019-05-15 14:57 | DISCHARGE SUMMARY ---
ADMISSION DATE: 05/08/2019 DISCHARGE DATE: 05/15/2019 DISCHARGE DIAGNOSES: 1. Left lower lobe pneumonia. 2. Sacral area Proteus mirabilis wound infection. 3. Down syndrome. HOSPITAL COURSE: The patient was admitted to the hospital on 05/08/2019 after he presented there with fever and shortness of breath along with dry cough. He was admitted to the hospital and COVID-19 testing was performed that was negative. He was treated with broad-spectrum antibiotics and was provided local wound care with which his condition improved. Since his condition has improved he is going to be discharged home today. We are arranging ambulance transport because of his poor physical condition secondary to Down syndrome and mental retardation. We will also arrange home health care for his wound care. CONDITION: Stable. DISPOSITION: Home with home health. DISCHARGE MEDICATIONS: Augmentin 875 mg orally twice daily for 1 week. cc: Jerrell Crespo MD
[2019-05-15 15:11] VITALS: BP 98/79
== END 2019-05-15 17:36 | disposition home or self-care (01) | DRG 193 ==
LOC: SUPCPDRO → ED 09:07 → 4N 13:28
PROVIDERS: ADMIT Internal Medicine; ATTEND Internal Medicine